=== PATIENT | male | born 1995 | race Caucasian/White ===

== ENCOUNTER 2023-06-26 22:20 | Emergency (ER) | payer MEDICAID ==
[~2023-06-26] VITALS: Ht 175.3 cm; Wt 86.2 kg
[2023-06-26] MEDS ORDERED: HYDROCODONE/APAP 5/325MG TABLET ONE (23:27)
[2023-06-26] MEDS: HYDROCODONE/APAP 5/325MG TABLET PO ONE (23:30)
[2023-06-27] MEDS ORDERED: ACET-2605 PO (00:58)
[2023-06-27] MEDS ORDERED: IBUP-1955 PO (00:58)
[2023-06-27] MEDS ORDERED: HYDR-4209 PO (00:58)
[2023-06-27 01:25] VITALS: BP 131/68; TEMP 98.1; O2SAT 98
== END 2023-06-27 01:25 | disposition home or self-care (01) ==
LOC: ER 22:25
DX: S92.192A Other fracture of left talus, initial encounter for closed fracture (principal); Z88.0 Allergy status to penicillin; X58.XXXA Exposure to other specified factors, initial encounter; Y93.67 Activity, basketball; Y92.89 Other specified places as the place of occurrence of the external cause; Y99.8 Other external cause status
CPT/HCPCS: 73610-TC; 73630-TC